=== PATIENT | female | born 1960 | race Asian ===

== ENCOUNTER → 2023-12-01 16:46 | Outpatient (CLI) | payer OTHER, SELFPAY ==
--- NOTE | 2023-12-01 16:49 | DI.MRI.S_ITS ---
PROCEDURE: MR KNEE RT WO CON INDICATIONS: PAIN IN RIGHT KNEE TECHNIQUE: Noncontrast sagittal PD fast spin echo and T2 fast spin echo with fat saturation, sagittal 3-D FLASH with fat saturation; coronal T1 spin echo and PD fast spin echo with fat saturation, and axial PD fast spin echo with fat saturation through the knee. COMPARISON: None. FINDINGS: Increased T2 weighted signal and thickening of the proximal attachment of the anterior cruciate ligament suspicious for acute versus chronic injury/strain however with intact fibers without full-thickness tear. Posterior cruciate ligament within normal limits. Abnormal appearance of the medial meniscus with irregularity/fraying of the posterior horn (sagittal series 10, 11, image 23 and axial series 9, image 20). Increased T2 weighted signal, edema at the meniscocapsular junction posteriorly medial greater than lateral suspicious for meniscocapsular separation. Parameniscal cysts are noted anterolateral to the anterior horn of the lateral meniscus and adjacent to the posterior horn of the medial meniscus. Otherwise the lateral meniscus is grossly normal without tear. Mild to moderate knee joint effusion. Mild diffuse cartilaginous thinning in the medial greater than lateral compartments. The patellofemoral cartilage is within normal limits for age. Medial structures: Abnormal increased T2 weighted signal surrounding the medial collateral ligament suspicious for grade 1 injury. Mild to moderate increased T2 weighted signal /edema within and surrounding the distal semimembranosus tendon. Mild increased T2 weighted signal surrounding the pes anserinus tendons. Lateral structures: Moderate increased T2 weighted signal and thickening of the popliteus tendon with surrounding edema suspicious for acute versus chronic injury/strain with intact fibers and no myotendinous retraction or significant muscle edema. Suspected tear with edema and irregular fibers of the popliteofibular ligament. Mild increased T2 weighted signal surrounding the lateral collateral ligament with intact fibers. The long and short heads of the biceps femoris tendon appear intact. Iliotibial band appears normal. Anterior structures: The quadriceps tendon and patellar ligament appear intact. Patellar alignment is normal. No femoral trochlear dysplasia or ventral trochlear prominence. No bone marrow contusions or fractures. No Martinez's cyst. Image quality: Excellent. Mild patient motion and vascular pulsation artifacts are noted. IMPRESSION: Increased T2 weighted signal and thickening of the anterior cruciate ligament proximally suspicious for injury/strain with intact fibers. Abnormal medial meniscus with irregularity/fraying of the posterior horn. Increased signal at the meniscocapsular junction posteriorly suspicious for meniscocapsular separation. Parameniscal cysts. Mild to moderate knee joint effusion. Mild diffuse cartilaginous thinning in the medial greater than lateral compartments. Abnormal signal surrounding the medial collateral ligament suspicious for grade 1 injury. Edema within and surrounding the distal semimembranosus and pes anserinus tendons. Moderate increased signal and thickening of the popliteus tendon with surrounding edema suspicious for acute versus chronic injury/strain. Suspected tear with edema and irregular fibers of the popliteofibular ligament. Mild increased T2 weighted signal surrounding the lateral collateral ligament. Follow-up suggested. Dictated by: Amador Colindres M.D. on 12/02/2023 at 14:24 Approved by: Amador Colindres M.D. on 12/02/2023 at 15:47
== END ==
LOC: MRI 16:48
PROVIDERS: Family Provider Family Medicine; Referring Provider Family Medicine; Visit Provider Family Medicine
DX: M23.041 Cystic meniscus, anterior horn of lateral meniscus, right knee (principal); M23.021 Cystic meniscus, posterior horn of medial meniscus, right knee; M25.561 Pain in right knee; M25.461 Effusion, right knee
CPT/HCPCS: 73721